=== PATIENT | female | born 1970 | race Two or more races ===

== ENCOUNTER 2016-05-27 06:05 | Day surgery (SDC) | payer OTHER ==
[2016-05-26 16:59] VITALS: BMI 26.6
[~2016-05-27] VITALS: Ht 157.5 cm; Wt 74.2 kg
[2016-05-27] VITALS (10 sets, daily range): BP systolic 98–129; BP diastolic 54–70; PULSE 48–68; RESP 18–28; Ht 157.5 cm; Wt 74.2 kg
[~2016-05-27 06:05] MED LIST: CEFAZOLIN 2 GM/50 ML (PMX) 50 ML IVPB ONE; LEVO75TA5 PO
[2016-05-27] MEDS ORDERED: LACTATED RINGER'S 1,000 ML IV* SCH (06:20)
[2016-05-27] MEDS ORDERED: CLINDAMYCIN 900 MG/D5W (PMX) 50 ML IVPB ONE (06:20)
[2016-05-27] MEDS ORDERED: BUPIVACAINE 0.25%/EPI (SDV) 30 ML INJ ONE (06:57)
[2016-05-27] MEDS ORDERED: SEVOFLURANE 15 MIN ONE (07:00)
[2016-05-27] MEDS ORDERED: LIDOCAINE 2% (SDV) 5 ML INJ ONE (07:28)
[2016-05-27] MEDS ORDERED: FENTAnyl 50 MCG/ML VIAL ONE (07:28)
[2016-05-27] MEDS ORDERED: MIDAZOLAM 1 MG/ML 2 ML INJ ONE (07:28)
[2016-05-27] MEDS ORDERED: SUCCINYLCHOLINE CHLORIDE 100 MG/5 ML SYG IV ONE (07:28)
[2016-05-27] MEDS ORDERED: PROPOFOL 20 ML ONE (07:28)
[2016-05-27] MEDS ORDERED: ROCURONIUM 50 MG INJ ONE (07:45)
[2016-05-27] MEDS ORDERED: DEXAMETHASONE 4 MG/ML 1 ML INJ ONE (07:46)
[2016-05-27] MEDS ORDERED: METOCLOPRAMIDE 10 MG INJ ONE (07:46)
[2016-05-27] MEDS ORDERED: ONDANSETRON 4 MG INJ ONE (07:46)
[2016-05-27] MEDS ORDERED: MEPERIDINE 25 MG INJ IV PRN (08:00)
[2016-05-27] MEDS ORDERED: PROCHLORPERAZINE 10 MG INJ IV PRN (08:00)
[2016-05-27] MEDS ORDERED: HYDROmorphONE (0.2 MG/ML) 10ML SYG IV PRN ×2 (08:00)
[2016-05-27] MEDS ORDERED: FENTAnyl 50 MCG/ML VIAL IV PRN (08:00)
[2016-05-27] MEDS ORDERED: ONDANSETRON 4 MG INJ IV PRN (08:00)
[2016-05-27] MEDS ORDERED: DIPHENHYDRAMINE 50 MG INJ IV PRN (08:00)
[2016-05-27] MEDS ORDERED: OXYCODONE/ACETAMINOPHEN (5/325) TAB PO PRN ×2 (08:00)
[2016-05-27] MEDS ORDERED: NEOSTIGMINE 3 MG/3 ML SYRINGE ONE (08:21)
[2016-05-27] MEDS ORDERED: GLYCOPYRROLATE 1 MG INJ ONE (08:21)
[2016-05-27] MEDS ORDERED: KETOROLAC 30 MG INJ ONE (08:21)
--- NOTE | 2016-05-27 09:51 | OPR ---
DATE OF OPERATION: PREOPERATIVE DIAGNOSIS: Patient desires permanent sterilization. POSTOPERATIVE DIAGNOSES: 1. Patient desires permanent sterilization. 2. Pelvic adhesions. OPERATION PERFORMED: Laparoscopic tubal fulguration and transection and lysis of adhesions. SURGEON: Dr. Fabio Healy COMPLICATIONS: None. FINDINGS: Dense omental adhesions to anterior abdominal wall. CONSENT: Please see preop H and P for the consent process. DESCRIPTION OF PROCEDURE: She was taken to the operating room and general anesthesia was induced. She was prepped and draped in the usual sterile fashion. A Albrecht catheter was inserted by the RN. A surgical time-out was done. Patient and procedure was identified. The anterior lip of the cervix was grasped using a single tooth tenaculum. The cervix had to be dilated and the HUMI was inserted in normal fashion. The uterus was noted to be very anteverted. Local anesthesia, 0.25% Marcaine w ith epinephrine, was injected at the periumbilical site and a small periumbilical incision was made and a blunt trocar was inserted in normal fashion. Intraperitoneal position was confirmed using the laparoscope. Pneumoperitoneum was obtained. The patient was placed in Trendelenburg position. We noted dense adhesions from the omentum to the anterior abdominal wall, but we were able to visualiz e both tubes, although to visualize the tubes, we had to go around the adhesions. A second trocar w as inserted at the suprapubic area under direct visualization of the laparoscope in the normal fashi on. It was impossible to perform a tubal ligation due to dense adhesions. had to be inserted t o cut some of the adhesions down, so a third trocar was inserted on the patient's left side at the u mbilical level 10 cm lateral to the umbilicus under direct visualization of the laparoscope. Gyrus was used to coagulate and cut the omental adhesions to be able to get access to the tubes and then b ilateral tubal ligation was done by coagulating the entire diameter of the tube, 6 cm of the r ight tube was coagulated. Complete desiccation of the entire diameter was noted. The middle of the coagulated portion was cut. The same procedure was done on the contralateral side. We only perfor med lysis of adhesions to be able to perform the tubal ligation. The sites of omental adhesions mae t were taken down were evaluated for bleeding and some areas that were suspicious were coagulated fu rther. All bleeding had stopped, we had complete hemostasis, and there was no bleeding. At this ti me, all instruments were removed and after pneumoperitoneum was released under direct visualization of the laparoscope. The skin was closed using 4-0 Monocryl. The HUMI was removed. There was no bl eeding. The patient tolerated the procedure well. Dictated By: FABIO PENALOZA/KEENA Conf#: [id number] DID#: [id number]
== END 2016-05-27 18:46 | disposition home or self-care (01) ==
LOC: SDS 06:05
PROVIDERS: ATTEND Specialist
DX: Z30.2 Encounter for sterilization (principal); N99.4 Postprocedural pelvic peritoneal adhesions
CPT/HCPCS: 58670; J0330; J1100; J1885; J2250; J2405; J2710; J2765; J3010; Z7512; Z7610